=== PATIENT | male | born 1960 | race Caucasian/White ===

== ENCOUNTER → 2018-09-08 | Outpatient (CLI) | payer MEDICARE | END | disposition home or self-care (01) | LOC: SHCH 09:10 | PROVIDERS: ATTEND Internal Medicine Cardiovascular Disease | DX: I73.9 Peripheral vascular disease, unspecified (principal); I87.2 Venous insufficiency (chronic) (peripheral) | CPT/HCPCS: 93925; 93970 ==

== ENCOUNTER → 2018-09-18 | Outpatient (CLI) | payer MEDICARE | END | disposition home or self-care (01) | LOC: SHCH 09:58 → EDUNIT# 10:00 | PROVIDERS: ATTEND Internal Medicine Cardiovascular Disease | DX: I08.3 Combined rheumatic disorders of mitral, aortic and tricuspid valves (principal); I27.20 Pulmonary hypertension, unspecified | CPT/HCPCS: 93306 ==

== ENCOUNTER 2018-12-21 15:52 | Emergency (ER) | payer MEDICARE ==
[~2018-12-21 15:52] MED LIST: CEFA1I IVP; FLUC100T8 PO; HYDR-4064 PO; LORA0.5T2 PO; METH40VI31 IVP; METO2.5T2 PO; METO25TA6 PO; MIRT7.5T11 PO; MULT-1296 PO; MUPI22OI2 TP; SPIR50TA5 PO; WARF3TAB29 PO
== END 2018-12-21 17:00 | disposition home or self-care (01) ==
LOC: EDH 15:52
DX: S81.802A Unspecified open wound, left lower leg, initial encounter (principal); S81.801A Unspecified open wound, right lower leg, initial encounter; I89.0 Lymphedema, not elsewhere classified; I11.0 Hypertensive heart disease with heart failure; I50.9 Heart failure, unspecified; I48.91 Unspecified atrial fibrillation; Z88.1 Allergy status to other antibiotic agents; X58.XXXA Exposure to other specified factors, initial encounter; Y93.89 Activity, other specified; Y92.89 Other specified places as the place of occurrence of the external cause; Y99.8 Other external cause status

== ENCOUNTER → 2018-12-22 | Outpatient (CLI) | payer MEDICARE ==
[2018-12-22 13:02] VITALS: BP 104/76
== END | disposition home or self-care (01) ==
LOC: WHH 08:45
PROVIDERS: ATTEND Family Medicine
DX: S91.002A Unspecified open wound, left ankle, initial encounter (principal); S91.001A Unspecified open wound, right ankle, initial encounter; I87.323 Chronic venous hypertension (idiopathic) with inflammation of bilateral lower extremity; I11.0 Hypertensive heart disease with heart failure; I50.9 Heart failure, unspecified; I89.0 Lymphedema, not elsewhere classified; I48.20 Chronic atrial fibrillation, unspecified; I87.2 Venous insufficiency (chronic) (peripheral); E66.01 Morbid (severe) obesity due to excess calories; J44.9 Chronic obstructive pulmonary disease, unspecified; G47.33 Obstructive sleep apnea (adult) (pediatric); F41.9 Anxiety disorder, unspecified; Z88.1 Allergy status to other antibiotic agents; Z95.0 Presence of cardiac pacemaker; X58.XXXA Exposure to other specified factors, initial encounter; Y93.89 Activity, other specified; Y92.89 Other specified places as the place of occurrence of the external cause; Y99.8 Other external cause status
CPT/HCPCS: 87070 ×2; A4450; A6197; A6452; G0463

== ENCOUNTER → 2018-12-28 | Outpatient (CLI) | payer MEDICARE ==
[2018-12-28 10:51] VITALS: BP 126/86
== END | disposition home or self-care (01) ==
LOC: WHH 08:00
PROVIDERS: ATTEND Family Medicine
DX: I83.013 Varicose veins of right lower extremity with ulcer of ankle (principal); L97.311 Non-pressure chronic ulcer of right ankle limited to breakdown of skin; I83.023 Varicose veins of left lower extremity with ulcer of ankle; L97.321 Non-pressure chronic ulcer of left ankle limited to breakdown of skin; I48.91 Unspecified atrial fibrillation; I11.0 Hypertensive heart disease with heart failure; I50.9 Heart failure, unspecified; I89.0 Lymphedema, not elsewhere classified; E66.01 Morbid (severe) obesity due to excess calories; J44.9 Chronic obstructive pulmonary disease, unspecified; G47.30 Sleep apnea, unspecified; F41.9 Anxiety disorder, unspecified; Z95.0 Presence of cardiac pacemaker; Z88.1 Allergy status to other antibiotic agents
CPT/HCPCS: 29580; A6197; A6450; A6456; G0463

== ENCOUNTER → 2019-01-04 | Outpatient (CLI) | payer MEDICARE ==
[2019-01-04 11:50] VITALS: BP 114/68
== END | disposition home or self-care (01) ==
LOC: WHH 08:00
PROVIDERS: ATTEND Family Medicine
DX: S91.002D Unspecified open wound, left ankle, subsequent encounter (principal); S91.001D Unspecified open wound, right ankle, subsequent encounter; I87.323 Chronic venous hypertension (idiopathic) with inflammation of bilateral lower extremity; I11.0 Hypertensive heart disease with heart failure; I50.9 Heart failure, unspecified; I89.0 Lymphedema, not elsewhere classified; I48.20 Chronic atrial fibrillation, unspecified; I87.2 Venous insufficiency (chronic) (peripheral); E66.01 Morbid (severe) obesity due to excess calories; J44.9 Chronic obstructive pulmonary disease, unspecified; G47.33 Obstructive sleep apnea (adult) (pediatric); F41.9 Anxiety disorder, unspecified; Z88.1 Allergy status to other antibiotic agents; Z95.0 Presence of cardiac pacemaker; X58.XXXD Exposure to other specified factors, subsequent encounter
CPT/HCPCS: A6196; G0463

== ENCOUNTER → 2019-01-11 | Outpatient (CLI) | payer MEDICARE ==
[2019-01-11 10:47] VITALS: BP 118/88
== END | disposition home or self-care (01) ==
LOC: WHH 08:00
PROVIDERS: ATTEND Family Medicine
DX: I83.023 Varicose veins of left lower extremity with ulcer of ankle (principal); L97.321 Non-pressure chronic ulcer of left ankle limited to breakdown of skin; I83.013 Varicose veins of right lower extremity with ulcer of ankle; L97.311 Non-pressure chronic ulcer of right ankle limited to breakdown of skin; I11.0 Hypertensive heart disease with heart failure; I50.9 Heart failure, unspecified; I89.0 Lymphedema, not elsewhere classified; I48.20 Chronic atrial fibrillation, unspecified; I87.2 Venous insufficiency (chronic) (peripheral); E66.01 Morbid (severe) obesity due to excess calories; J44.9 Chronic obstructive pulmonary disease, unspecified; G47.33 Obstructive sleep apnea (adult) (pediatric); F41.9 Anxiety disorder, unspecified; Z88.1 Allergy status to other antibiotic agents; Z95.0 Presence of cardiac pacemaker
CPT/HCPCS: A6250; G0463

== ENCOUNTER → 2019-01-18 | Outpatient (CLI) | payer MEDICARE | END | disposition home or self-care (01) | LOC: SHCH 08:42 | PROVIDERS: ATTEND Internal Medicine Cardiovascular Disease | DX: I82.812 Embolism and thrombosis of superficial veins of left lower extremity (principal) | CPT/HCPCS: 93971 ==

== ENCOUNTER → 2019-01-18 | Outpatient (CLI) | payer MEDICARE ==
[2019-01-18 14:06] VITALS: BP 112/83
== END | disposition home or self-care (01) ==
LOC: WHH 13:00
PROVIDERS: ATTEND Family Medicine
DX: I83.023 Varicose veins of left lower extremity with ulcer of ankle (principal); L97.328 Non-pressure chronic ulcer of left ankle with other specified severity; I11.0 Hypertensive heart disease with heart failure; I50.9 Heart failure, unspecified; I89.0 Lymphedema, not elsewhere classified; I48.20 Chronic atrial fibrillation, unspecified; I87.2 Venous insufficiency (chronic) (peripheral); E66.01 Morbid (severe) obesity due to excess calories; G47.33 Obstructive sleep apnea (adult) (pediatric); F41.9 Anxiety disorder, unspecified; Z88.1 Allergy status to other antibiotic agents; Z95.0 Presence of cardiac pacemaker
CPT/HCPCS: G0463

== ENCOUNTER → 2019-01-24 | Outpatient (CLI) | payer MEDICARE | END | disposition home or self-care (01) | LOC: SHCH 09:16 | PROVIDERS: ATTEND Internal Medicine Cardiovascular Disease | DX: I51.7 Cardiomegaly (principal); I87.2 Venous insufficiency (chronic) (peripheral); I42.0 Dilated cardiomyopathy | CPT/HCPCS: 93306 ==

== ENCOUNTER → 2019-02-08 | Outpatient (CLI) | payer MEDICARE | END | disposition home or self-care (01) | LOC: SHCH 09:14 | PROVIDERS: ATTEND Internal Medicine Cardiovascular Disease | DX: I82.4Y1 Acute embolism and thrombosis of unspecified deep veins of right proximal lower extremity (principal) | CPT/HCPCS: 93971 ==

== ENCOUNTER → 2019-06-29 | Outpatient (CLI) | payer MEDICARE ==
[~2019-06-29] MED LIST changes: +REGADENOSON 0.4 MG/5 ML PF SYG IVP SCH
== END | disposition home or self-care (01) ==
LOC: SHCH 08:10
PROVIDERS: ATTEND Internal Medicine Cardiovascular Disease
DX: R94.31 Abnormal electrocardiogram [ECG] [EKG] (principal)
CPT/HCPCS: 78452; 93017; 96374; A9500 ×2; J2785

== ENCOUNTER 2019-08-03 05:18 | Day surgery (SDC) | payer MEDICARE ==
[2019-07-30 10:47] VITALS: BP 134/78
[2019-07-30 13:38] LABS: BASOPHILS % (AUTO) 0.5 % (0.0-5.0); EOSINOPHILS % (AUTO) 2.4 % (0.0-8.0); HEMATOCRIT 42.2 % (42-54); LYMPHOCYTES % (AUTO) 20.3 % (21.0-51.0); MEAN CORPUSCULAR HEMOGLOBIN 32.2 pg (27.0-33.0); MEAN CORPUSCULAR HGB CONC 34.4 g/dL (32.0-36.0); MEAN CORPUSCULAR VOLUME 93.6 fL (79-99); MONOCYTES % (AUTO) 9.9 % (3.0-13.0); NEUTROPHILS % (AUTO) 66.6 % (40.0-77.0); PLATELET COUNT (AUTO) 181 K/uL (130-400); RED BLOOD CELL COUNT(AUTO) 4.51 MIL/uL (4.50-6.20); RED CELL DISTRIBUTION WIDTH 12.3 % (11.0-15.5); WHITE BLOOD COUNT (AUTO) 8.8 K/uL (4.8-10.8)
[2019-07-30 13:40] LABS: APPEARANCE,URINE Clear (CLEAR); BILIRUBIN,URINE Negative (NEGATIVE); COLOR,URINE Yellow (YELLOW); GLUCOSE, URINE (UA) Negative (NEGATIVE); KETONES,URINE Negative (NEGATIVE); LEUKOCYTE ESTERASE ,URINE Negative (NEGATIVE); NITRATE,URINE Negative (NEGATIVE); OCCULT BLOOD,URINE Negative (NEGATIVE); PH,URINE 6.5 (5.0-8.0); PROTEIN,URINE Negative (NEGATIVE); UROBILINOGEN,URINE 0.2 mg/dL (0.2-1.0)
[2019-07-30 13:55] LABS: CREATININE 1.1 mg/dL (0.5-1.5); POTASSIUM 4.5 mmol/L (3.5-5.1)
[2019-07-30 13:58] LABS: INR 1.59 (0.85-1.15); PROTHROMBIN TIME 16.9 SEC (9.6-11.6)
--- NOTE | 2019-08-02 10:59 | NUR ---
anamaria MCCONNELL NOTIFIED THAT PT TOOK WARFARIN THIS AM. ALSO REPORTED PT/ INR LEVELS. NO FURTHER ORDERS GIVEN. OK TO PROCEED WITH PROCEDURE. PT INSTRUCTED TO HOLD WARFARIN IMMEDIATELY
[~2019-08-03] VITALS: Ht 175.3 cm; Wt 166.9 kg
[2019-08-03] VITALS (9 sets, daily range): BP systolic 82–103; BP diastolic 33–68
[~2019-08-03 05:18] MED LIST changes: +ALPR0.5T8 PO; +ASCO-360 PO; +ASPI-556 PO; +BUPR-47 PO; -CEFA1I IVP; +FE F1CAP8 PO; +FISH1CAP27 PO; -FLUC100T8 PO; +FURO20TA4 PO; -LORA0.5T2 PO; +LOSA25TA41 PO; -METH40VI31 IVP; -METO2.5T2 PO; -METO25TA6 PO; +METO50TA18 PO; -MIRT7.5T11 PO; -MULT-1296 PO; +MULT-1367 PO; -MUPI22OI2 TP; +QUET200T29 PO; -REGADENOSON 0.4 MG/5 ML PF SYG IVP SCH; +SPIR25TA6 PO; -SPIR50TA5 PO
[2019-08-03] MEDS ORDERED: SODIUM CHLORIDE 0.9% 1000ML 1,000 ML IV ONE (06:06)
[2019-08-03] MEDS ORDERED: SODIUM BICARB 50MEQ 50ML VIAL ONE (07:18)
[2019-08-03] MEDS ORDERED: IOHEXOL 350 MG/ML 100ML INFUS..BTL IV ONE (07:19)
[2019-08-03] MEDS ORDERED: HEPARIN SODIUM 1000UNIT/ML 10ML VIAL ONE (07:19)
[2019-08-03] MEDS ORDERED: MEPERIDINE-PF 25 MG/ML SYG ONE ×2 (07:19→08:25)
[2019-08-03] MEDS ORDERED: NITROGLYCERIN 2 MG/VIAL VIAL IV ONE (07:19)
[2019-08-03] MEDS ORDERED: IOHEXOL-350 50ML VIAL IV ONE (07:19)
[2019-08-03] MEDS ORDERED: MIDAZOLAM HCL 1 MG/ML 2ML VIAL ONE (07:20)
[2019-08-03] MEDS ORDERED: LIDOCAINE HCL 2% 20ML ONE (07:20)
[2019-08-03] MEDS ORDERED: NICARDIPINE HCL 25 MG/10 ML ML IV ONE (07:23)
[2019-08-03] MEDS ORDERED: SODIUM CHLORIDE 0.9% 1000ML 1,000 ML IV SCH (08:51)
[2019-08-03] MEDS ORDERED: ACETAMINOPHEN-CODEINE 300/30MG TAB PO PRN (09:00)
== END 2019-08-03 13:02 | disposition home or self-care (01) ==
LOC: DAH 05:18
PROVIDERS: ATTEND Internal Medicine Cardiovascular Disease
DX: I25.10 Atherosclerotic heart disease of native coronary artery without angina pectoris (principal); I48.91 Unspecified atrial fibrillation; G47.33 Obstructive sleep apnea (adult) (pediatric); Z99.89 Dependence on other enabling machines and devices; Z88.0 Allergy status to penicillin; Z79.899 Other long term (current) drug therapy
CPT/HCPCS: 36415; 71045; 80048; 81003; 85025; 85610; 85730; 93005; 93458; A4215; A4221; A4222; A4223; A4606; A4663; C1769; C1894; J1644 ×2; J2175 ×2; J2250; J3490 ×4; J7030; Q9965; Q9967 ×2; 99156; 99157

== ENCOUNTER → 2020-01-26 | Outpatient (CLI) | payer MEDICARE | END | disposition home or self-care (01) | LOC: SHCH 13:41 | PROVIDERS: ATTEND Internal Medicine Cardiovascular Disease | DX: I87.2 Venous insufficiency (chronic) (peripheral) (principal) | CPT/HCPCS: 93970 ==

== ENCOUNTER → 2020-02-21 | Outpatient (CLI) | payer MEDICARE | END | disposition home or self-care (01) | LOC: SHCH 15:09 | PROVIDERS: ATTEND Internal Medicine Cardiovascular Disease | DX: Z09 Encounter for follow-up examination after completed treatment for conditions other than malignant neoplasm (principal); I87.2 Venous insufficiency (chronic) (peripheral) | CPT/HCPCS: 93971 ==

== ENCOUNTER → 2020-03-27 | Outpatient (CLI) | payer MEDICARE ==
[~2020-03-27] MED LIST changes: -BUPR-47 PO; +BUPR-48 PO
== END | disposition home or self-care (01) ==
LOC: SHCH 07:46
PROVIDERS: ATTEND Internal Medicine Cardiovascular Disease
DX: Z09 Encounter for follow-up examination after completed treatment for conditions other than malignant neoplasm (principal); I87.2 Venous insufficiency (chronic) (peripheral)
CPT/HCPCS: 93971

== ENCOUNTER → 2020-04-03 | Outpatient (CLI) | payer MEDICARE | END | disposition home or self-care (01) | LOC: SHCH 08:02 | PROVIDERS: ATTEND Internal Medicine Cardiovascular Disease | DX: Z09 Encounter for follow-up examination after completed treatment for conditions other than malignant neoplasm (principal); I87.2 Venous insufficiency (chronic) (peripheral) | CPT/HCPCS: 93971 ==

== ENCOUNTER 2020-11-28 01:32 | Observation (INO) | payer MEDICARE ==
[2020-11-28] VITALS (10 sets, daily range): BP systolic 89–115; BP diastolic 44–66
[~2020-11-28] VITALS: Ht 177.8 cm; Wt 167.5 kg
[~2020-11-28 01:32] MED LIST changes: -BUPR-48 PO; +BUPR-49 PO; -QUET200T29 PO; +QUET200T30 PO
[2020-11-28] MEDS ORDERED: FAMOTIDINE 20MG VIAL IV ONE (02:00)
[2020-11-28] MEDS ORDERED: DiphenhydrAMINE HCL 50 MG/ML VIAL IV ONE (02:00)
[2020-11-28] MEDS ORDERED: SOLU-MEDROL 125MG VIAL IVP ONE (02:00)
[2020-11-28] MEDS ORDERED: 0.9%NACL 1000ML 1,000 ML IV ONE (02:00)
[2020-11-28 02:45] LABS: BASOPHILS % (AUTO) 0.2 % (0.0-5.0); EOSINOPHILS % (AUTO) 0.3 % (0.0-8.0); HEMATOCRIT 43.8 % (42-54); LYMPHOCYTES % (AUTO) 5.9 % (21.0-51.0); MEAN CORPUSCULAR HEMOGLOBIN 32.9 pg (27.0-33.0); MEAN CORPUSCULAR HGB CONC 34.7 g/dL (32.0-36.0); MEAN CORPUSCULAR VOLUME 94.8 fL (79-99); MONOCYTES % (AUTO) 7.3 % (3.0-13.0); NEUTROPHILS % (AUTO) 85.8 % (40.0-77.0); PLATELET COUNT (AUTO) 175 K/uL (130-400); RED BLOOD CELL COUNT(AUTO) 4.62 MIL/uL (4.50-6.20); RED CELL DISTRIBUTION WIDTH 12.9 % (11.0-15.5); WHITE BLOOD COUNT (AUTO) 19.5 K/uL (4.8-10.8)
[2020-11-28 02:57] LABS: CREATININE 1.7 mg/dL (0.5-1.5); POTASSIUM 3.7 mmol/L (3.5-5.1)
[2020-11-28 03:02] LABS: ALBUMIN 3.5 g/dL (3.5-5.0); BILIRUBIN,TOTAL 0.6 mg/dL (0.2-1.0); TOTAL PROTEIN, SERUM 7.4 g/dL (6.0-8.3)
[2020-11-28] MEDS ORDERED: NITROGLYCERIN 0.4 MG SL TAB SL PRN (05:00)
[2020-11-28] MEDS ORDERED: ACETAMINOPHEN 325 MG TAB PO PRN ×2 (05:00)
[2020-11-28] MEDS ORDERED: DiphenhydrAMINE HCL 50 MG/ML VIAL IV PRN (05:00)
[2020-11-28] MEDS ORDERED: ONDANSETRON 4MG INJ IV PRN (05:00)
[2020-11-28 05:44] LABS: HEMOGLOBIN A1C 5.6 % (4.0-6.0)
[2020-11-28] MEDS: 0.9%NACL 1000ML 1,000 ML IV SCH ×2 (06:48→15:00)
[2020-11-28 07:08] LABS: ABG BASE EXCESS -0.4 mmol/L (-2.0-3.0); ABG HCO3 24.9 mmol/L (21.0-28.0); ABG OXYGEN SATURATION 94.9 % (95.0-99.0); ABG PCO2 43 mmHg (35-48)
[2020-11-28] MEDS: FAMOTIDINE 20MG TAB PO SCH ×2 (07:50→20:20)
[2020-11-28 08:44] LABS: BASOPHILS % (AUTO) 0.2 % (0.0-5.0); EOSINOPHILS % (AUTO) 0.1 % (0.0-8.0); HEMATOCRIT 42.7 % (42-54); LYMPHOCYTES % (AUTO) 2.8 % (21.0-51.0); MEAN CORPUSCULAR HEMOGLOBIN 31.8 pg (27.0-33.0); MEAN CORPUSCULAR HGB CONC 34.2 g/dL (32.0-36.0); MONOCYTES % (AUTO) 1.1 % (3.0-13.0); NEUTROPHILS % (AUTO) 95.2 % (40.0-77.0); PLATELET COUNT (AUTO) 171 K/uL (130-400); RED BLOOD CELL COUNT(AUTO) 4.59 MIL/uL (4.50-6.20); RED CELL DISTRIBUTION WIDTH 12.7 % (11.0-15.5); WHITE BLOOD COUNT (AUTO) 18.3 K/uL (4.8-10.8)
[2020-11-28 08:59] LABS: CREATININE 1.5 mg/dL (0.5-1.5); POTASSIUM 4.2 mmol/L (3.5-5.1)
[2020-11-28 09:03] LABS: ALBUMIN 3.7 g/dL (3.5-5.0); BILIRUBIN,TOTAL 0.5 mg/dL (0.2-1.0); CRP QUANTITATIVE 24.4 mg/L (0.00-9.0); MAGNESIUM 1.8 mg/dL (1.80-2.40); TOTAL PROTEIN, SERUM 7.8 g/dL (6.0-8.3)
[2020-11-28 09:04] LABS: INR 1.15 (0.85-1.15); PROTHROMBIN TIME 12.4 SEC (9.6-11.6)
[2020-11-28 09:05] LABS: PARTIAL THROMBOPLASTIN TIME 26.8 SEC (26.3-35.5)
[2020-11-28 11:43] LABS: APPEARANCE,URINE Clear (CLEAR); BILIRUBIN,URINE Negative (NEGATIVE); COLOR,URINE Yellow (YELLOW); GLUCOSE, URINE (UA) Negative (NEGATIVE); KETONES,URINE Trace mg/dL (NEGATIVE); LEUKOCYTE ESTERASE ,URINE Trace (NEGATIVE); NITRATE,URINE Negative (NEGATIVE); OCCULT BLOOD,URINE Negative (NEGATIVE); PH,URINE 5.5 (5.0-8.0); PROTEIN,URINE Negative (NEGATIVE)
[2020-11-28 11:53] LABS: BACTERIA,URINE None Seen /HPF (None Seen); HYALINE CASTS, URINE 0-1 /LPF (0-1 /LPF); RBC,URINE 0-1 /HPF (0-1); SQUAMOUS EPITHELIAL CELL,UR 0-2 /HPF (0-2); WBC,URINE 0-1 /HPF (0-1)
[2020-11-28 11:58] LABS: AMPHET/METH SCREEN,URINE NEGATIVE (NEGATIVE); BARBITURATE SCREEN, URINE NEGATIVE (NEGATIVE); BENZODIAZEPINES SCREEN,URINE POSITIVE (NEGATIVE); CANNABINOID SCREEN,URINE NEGATIVE (NEGATIVE); COCAINE SCREEN,URINE NEGATIVE (NEGATIVE); OPIATE SCREEN,URINE POSITIVE (NEGATIVE); PHENCYCLIDINE SCREEN,URINE NEGATIVE (NEGATIVE)
[2020-11-28] MEDS ORDERED: AEC81 PO (13:52)
[2020-11-28] MEDS ORDERED: BUPR150T8 PO (13:58)
[2020-11-28] MEDS ORDERED: LORA0.5T83 PO ×2 (13:58→14:14)
[2020-11-28] MEDS ORDERED: LOSA25TA41 PO (14:04)
[2020-11-28] MEDS ORDERED: APIX5TAB PO (14:04)
[2020-11-28] MEDS ORDERED: NYST1POW9 MC (14:14)
[2020-11-28] MEDS ORDERED: MULT-1192 PO (14:14)
[2020-11-28] MEDS ORDERED: LEVOFLOXACIN 500 MG/D5W 100 ML 100 ML IV SCH (14:30)
[2020-11-28] MEDS ORDERED: APIXABAN 2.5 MG TABLET PO ONE (20:12)
[2020-11-28] MEDS: LORAZEPAM 0.5 MG TABLET PO SCH (20:20)
[2020-11-28] MEDS: APIXABAN 5 MG TABLET PO SCH (20:20)
[2020-11-28] MEDS: METOPROLOL TARTRATE 50 MG TAB PO SCH (20:20)
[2020-11-28] MEDS ORDERED: QUETIAPINE FUMARATE 100 MG TAB PO SCH (21:00)
[2020-11-28] MEDS ORDERED: CEFTRIAXONE 1G VIAL IVP SCH (21:00)
[2020-11-29 00:31] LABS: ABG HCO3 24.1 mmol/L (21.0-28.0); ABG OXYGEN SATURATION 97.7 % (95.0-99.0); ABG PCO2 46 mmHg (35-48)
[2020-11-29] MEDS: 0.9%NACL 1000ML 1,000 ML IV SCH (00:55)
[2020-11-29 04:00] VITALS: BP 90/56
[2020-11-29 04:19] LABS: BASOPHILS % (AUTO) 0.2 % (0.0-5.0); EOSINOPHILS % (AUTO) 0.1 % (0.0-8.0); HEMATOCRIT 38.1 % (42-54); LYMPHOCYTES % (AUTO) 5.1 % (21.0-51.0); MEAN CORPUSCULAR HEMOGLOBIN 32.5 pg (27.0-33.0); MEAN CORPUSCULAR HGB CONC 34.6 g/dL (32.0-36.0); MEAN CORPUSCULAR VOLUME 93.8 fL (79-99); MONOCYTES % (AUTO) 5.6 % (3.0-13.0); NEUTROPHILS % (AUTO) 88.5 % (40.0-77.0); PLATELET COUNT (AUTO) 158 K/uL (130-400); RED BLOOD CELL COUNT(AUTO) 4.06 MIL/uL (4.50-6.20); RED CELL DISTRIBUTION WIDTH 12.7 % (11.0-15.5); WHITE BLOOD COUNT (AUTO) 17.8 K/uL (4.8-10.8)
[2020-11-29 04:50] LABS: ALBUMIN 3.3 g/dL (3.5-5.0); BILIRUBIN,TOTAL 0.4 mg/dL (0.2-1.0); CREATININE 1.2 mg/dL (0.5-1.5); POTASSIUM 3.7 mmol/L (3.5-5.1)
[2020-11-29 08:00] VITALS: BP 124/82
[2020-11-29] MEDS ORDERED: ASCORBIC ACID 500 MG TAB PO SCH (09:00)
[2020-11-29] MEDS ORDERED: SPIRONOLACTONE 25 MG TAB PO SCH (09:00)
[2020-11-29] MEDS ORDERED: ASPIRIN 81 MG EC TAB PO SCH (09:00)
[2020-11-29] MEDS ORDERED: MULTIVITAMIN TABLET PO SCH (09:00)
[2020-11-29] MEDS ORDERED: FUROSEMIDE 20 MG TABLET PO SCH (09:00)
[2020-11-29] MEDS: LORAZEPAM 0.5 MG TABLET PO SCH (09:47)
[2020-11-29] MEDS: APIXABAN 5 MG TABLET PO SCH (09:47)
[2020-11-29] MEDS: METOPROLOL TARTRATE 50 MG TAB PO SCH (09:47)
[2020-11-29] MEDS: FAMOTIDINE 20MG TAB PO SCH (09:47)
[2020-11-29] MEDS ORDERED: EPIN0.3P3 IJ (10:04)
[2020-11-29 11:52] VITALS: BP 110/74
== END 2020-11-29 12:36 | disposition home or self-care (01) ==
LOC: EDH 01:32 → EDHIP 04:46 → 4BH 22:55
PROVIDERS: ADMIT Internal Medicine; ATTEND Internal Medicine
DX: T78.2XXA Anaphylactic shock, unspecified, initial encounter (principal); Z20.822 Contact with and (suspected) exposure to COVID-19; D72.829 Elevated white blood cell count, unspecified; I95.9 Hypotension, unspecified; I13.0 Hypertensive heart and chronic kidney disease with heart failure and stage 1 through stage 4 chronic kidney disease, or unspecified chronic kidney disease; I50.22 Chronic systolic (congestive) heart failure; N18.9 Chronic kidney disease, unspecified; N17.9 Acute kidney failure, unspecified; E66.01 Morbid (severe) obesity due to excess calories; E78.1 Pure hyperglyceridemia; I48.91 Unspecified atrial fibrillation; G56.00 Carpal tunnel syndrome, unspecified upper limb; G47.33 Obstructive sleep apnea (adult) (pediatric); M19.90 Unspecified osteoarthritis, unspecified site; Z68.43 Body mass index [BMI] 50.0-59.9, adult; Z79.01 Long term (current) use of anticoagulants; Z88.0 Allergy status to penicillin; Z79.82 Long term (current) use of aspirin; Z79.899 Other long term (current) drug therapy; Z98.890 Other specified postprocedural states
CPT/HCPCS: 36415 ×2; 36600 ×2; 71045; 80053 ×3; 80305; 81001; 82803 ×2; 83036; 83605 ×2; 83735; 83880; 84145; 84484; 85025 ×3; 85378 ×2; 85610; 85730; 86140; 87040 ×2; 87088; 87635; 93005; 93970; 94660; 96361; 96365; 96366; 96375; 96376; 99291; G0378 ×32; J1200 ×2; J1956; J2930; J3490; J7030

== ENCOUNTER → 2021-09-04 | Outpatient (CLI) | payer MEDICARE ==
[~2021-09-04] MED LIST changes: +AEC81 PO; -ALPR0.5T8 PO; +APIX5TAB PO; +BUPR-113 PO; +EPIN0.3P3 IJ; -FE F1CAP8 PO; -HYDR-4064 PO; +LORA0.5T83 PO; +MULT-1192 PO; -MULT-1367 PO; +NYST1POW9 MC; -WARF3TAB29 PO
== END | disposition home or self-care (01) ==
LOC: SHCH 09:36
PROVIDERS: ATTEND Internal Medicine Cardiovascular Disease
DX: I34.8 Other nonrheumatic mitral valve disorders (principal); I51.7 Cardiomegaly; I25.10 Atherosclerotic heart disease of native coronary artery without angina pectoris; I87.2 Venous insufficiency (chronic) (peripheral); I48.20 Chronic atrial fibrillation, unspecified; F15.10 Other stimulant abuse, uncomplicated; R94.31 Abnormal electrocardiogram [ECG] [EKG]; E66.01 Morbid (severe) obesity due to excess calories; Z98.890 Other specified postprocedural states
CPT/HCPCS: 93306

== ENCOUNTER 2023-09-17 05:43 | Emergency (ER) | payer MEDICARE ==
[~2023-09-17] VITALS: Ht 177.8 cm; Wt 147.4 kg
[2023-09-17] MEDS ORDERED: HYDR-4064 PO (06:38)
[2023-09-17] MEDS ORDERED: FERR324T10 PO (06:38)
[2023-09-17 06:40] LABS: BASOPHILS # (AUTO) 0.05 K/uL (0.00-0.20); BASOPHILS % (AUTO) 0.3 % (0.0-5.0); EOSINOPHILS % (AUTO) 1.2 % (0.0-8.0); HEMATOCRIT 38.9 % (42-54); IMMATURE GRANULOCYTE ABSOLUTE 0.08 K/uL (0-1); LYMPHOCYTES # (AUTO) 0.9 K/uL (1.0-4.8); LYMPHOCYTES % (AUTO) 5.1 % (21.0-51.0); MEAN CORPUSCULAR HEMOGLOBIN 31.1 pg (27.0-33.0); MEAN CORPUSCULAR HGB CONC 34.7 g/dL (32.0-36.0); MEAN CORPUSCULAR VOLUME 89.6 fL (79-99); MONOCYTES % (AUTO) 6.1 % (3.0-13.0); NEUTROPHILS # (AUTO) 14.4 K/uL (1.8-7.7); NEUTROPHILS % (AUTO) 86.8 % (40.0-77.0); PLATELET COUNT (AUTO) 197 K/uL (130-400); RED BLOOD CELL COUNT(AUTO) 4.34 MIL/uL (4.50-6.20); WHITE BLOOD COUNT (AUTO) 16.6 K/uL (4.8-10.8)
[2023-09-17 07:00] VITALS: BP 116/72; PULSE 97; RESP 16; O2SAT 99
[2023-09-17 07:46] LABS: B-TYPE NATRIURETIC PEPTIDE 38 pg/mL (0-100)
[2023-09-17 08:35] LABS: ALBUMIN 3.5 g/dL (3.5-5.0); BILIRUBIN,TOTAL 0.8 mg/dL (0.2-1.0); CREATININE 1.2 mg/dL (0.5-1.3); POTASSIUM 3.3 mmol/L (3.5-5.1); TOTAL PROTEIN, SERUM 7.6 g/dL (6.0-8.3)
[2023-09-17] MEDS ORDERED: HYDR-4381 PO (08:50)
[2023-09-17] MEDS ORDERED: MELO-108 PO (08:50)
[2023-09-17] MEDS: KETOROLAC 15MG/ML VIAL (15MG/ML) IV ONE (09:09)
[2023-09-17] MEDS: HYDROCODONE/ACETAMINOPHEN 10/325 MG TAB PO ONE (09:09)
[2023-09-17] MEDS ORDERED: HYDR-4068 PO (12:09)
== END 2023-09-17 09:35 | disposition home or self-care (01) ==
LOC: EDH 05:43
DX: M00.872 Arthritis due to other bacteria, left ankle and foot (principal); M00.871 Arthritis due to other bacteria, right ankle and foot; B96.89 Other specified bacterial agents as the cause of diseases classified elsewhere; I11.0 Hypertensive heart disease with heart failure; M79.672 Pain in left foot; I50.9 Heart failure, unspecified; F32.A Depression, unspecified; F41.9 Anxiety disorder, unspecified; E66.9 Obesity, unspecified; R22.43 Localized swelling, mass and lump, lower limb, bilateral; Z88.1 Allergy status to other antibiotic agents; Z79.82 Long term (current) use of aspirin; Z79.899 Other long term (current) drug therapy; Z98.890 Other specified postprocedural states
CPT/HCPCS: 99285; 93970; 96374; 71045; 84484; 80053; 83880; 85025; 36415; 73610; 73630; J1885

== ENCOUNTER → 2024-03-26 | Outpatient (CLI) | payer MEDICARE ==
[~2024-03-26] MED LIST changes: +FERR324T10 PO; +HYDR-4064 PO; +HYDR-4068 PO; +MELO-108 PO
[2024-03-26 22:00] VITALS: PULSE 98; RESP 26
[2024-03-26 22:30] VITALS: PULSE 82; RESP 28
[2024-03-26 23:00] VITALS: PULSE 84; RESP 26
[2024-03-26 23:30] VITALS: PULSE 84; RESP 24
[2024-03-27] VITALS (10 sets, daily range): PULSE 78–86; RESP 22–30
--- NOTE | 2024-03-27 04:01 | NUR ---
FUROSEMIDE 20 MG,HYDROCODONE-ACETAMINOPHEN 7.5-325 MG,LORAZEPAM 0.5,LOSARTAN 25 MG, METOPROLOL TARTRATE 50 MG,MULTIVITAMIN,NYSTATIN 100,000 UNIT/GRAM,OMEGA-3 350 MG-235 MG,QUETIAPINE 200 MG,SPIRONOLACTONE 25 MG,ELIQUIS 5 MG Addendum: 03/27/24 at 3714 by BROOKLYN AUSTIN Amended: Links added.
== END | disposition home or self-care (01) ==
LOC: SLP 20:29
PROVIDERS: ATTEND Family Medicine
DX: G47.33 Obstructive sleep apnea (adult) (pediatric) (principal); I10 Essential (primary) hypertension
CPT/HCPCS: 95810

== ENCOUNTER → 2024-04-04 | Outpatient (CLI) | payer MEDICARE ==
[2024-04-04 22:25] VITALS: PULSE 82; RESP 18
[2024-04-04 23:00] VITALS: PULSE 78; RESP 20
[2024-04-04 23:30] VITALS: PULSE 82; RESP 22
[2024-04-05] VITALS (10 sets, daily range): PULSE 76–86; RESP 20–24
== END | disposition home or self-care (01) ==
LOC: SLP 20:25
PROVIDERS: ATTEND Family Medicine
DX: G47.33 Obstructive sleep apnea (adult) (pediatric) (principal); I10 Essential (primary) hypertension
CPT/HCPCS: 95811

== ENCOUNTER 2024-11-09 06:39 | Day surgery (SDC) | payer MEDICARE ==
[2024-11-05 11:45] LABS: IMMATURE GRANULOCYTE ABSOLUTE 0.03 K/uL (0-1); NUCLEATED RED BLOOD CELLS 0.0 % (0.0-0.19); PLATELET COUNT (AUTO) 179 K/uL (130-400); RED BLOOD CELL COUNT(AUTO) 4.18 MIL/uL (4.50-6.20); RED CELL DISTRIBUTION WIDTH 12.9 % (11.0-15.5); WHITE BLOOD COUNT (AUTO) 9.3 K/uL (4.8-10.8)
[2024-11-05 11:53] VITALS: BP 96/58; PULSE 94; RESP 16; TEMP 99.1
[2024-11-05 11:55] LABS: CREATININE 1.2 mg/dL (0.5-1.3); GLOMERULAR FILTR. RATE CALC 68.0 mL/min (>90); GLUCOSE,RANDOM 121.0 mg/dL (70-105); SODIUM SERUM 135.0 mmol/L (136-145); UREA NITROGEN, BLOOD 28.0 mg/dL (7-18)
[2024-11-05 11:56] LABS: INR 1.14 (0.85-1.15)
[~2024-11-09] VITALS: Ht 177.8 cm; Wt 143.7 kg
[~2024-11-09 06:39] MED LIST changes: +ALLO100T PO; -ASCO-360 PO; -ASPI-556 PO; -BUPR-113 PO; -BUPR-49 PO; +BUPR200T8 PO; +COLC0.6T79 PO; -EPIN0.3P3 IJ; -FERR324T10 PO; -FISH1CAP27 PO; +GABA-529 PO; -HYDR-4064 PO; -HYDR-4068 PO; -MELO-108 PO; +METO2.5T2 PO; -MULT-1192 PO; -NYST1POW9 MC; +SIMV5TAB58 PO; +TAMS-55 PO
[2024-11-09 06:42] VITALS: BP 129/71; PULSE 99; RESP 17; TEMP 98.2
[2024-11-09] MEDS: 0.9%NACL 1000ML 1,000 ML IV SCH (07:14)
[2024-11-09] MEDS ORDERED: LIDOCAINE HCL 400MG/20ML VIAL ONE (09:36)
[2024-11-09] MEDS ORDERED: IOHEXOL 350 MG/ML 100ML INFUS..BTL IV ONE (09:36)
[2024-11-09] MEDS ORDERED: HEParin-NS 1,000 UNIT/500 ML 1,000 ML IV ONE (09:37)
[2024-11-09] MEDS ORDERED: NITROGLYCERIN 50MG VIAL ONE (09:37)
[2024-11-09] MEDS ORDERED: IODIXANOL 320 MG/ML 100 ML VIAL ONE (09:41)
[2024-11-09] MEDS ORDERED: MIDAZOLAM HCL 1 MG/ML 2ML VIAL ONE ×2 (10:13→10:56)
--- NOTE | 2024-11-09 11:43 | PRN ---
Procedure Note INDICATION FOR PROCEDURE: [] Iliac vein compression PROCEDURE: [] Conscious sedation Right internal jugular sheath placement 9 Japanese ultrasound-guided Left common femoral venogram Intravascular ultrasound of bilateral common femoral veins common external iliac veins common iliac veins and IVC Angioplasty and stent placement to left common iliac external iliac and common femoral vein with the use of a 20 mm x 150 mm Medtronic venous self expanding stent Primary stent placement to right common femoral vein, right external iliac and common iliac vein with the use of a 16 mm x 150 mm Medtronic venous self expanding stent DATE OF PROCEDURE: November 09, 2024 ORDER DETAILER: Jose Alejandro Rodriguez MD, F.A.C.C. PROCEDURE NOTE: [] Patient was electively brought to catheterization suite and prepped and draped in sterile fashion. Right IJ was exposed for access and was done ultrasound- guided and a 9 Japanese sheath was then placed into the right internal jugular vein. Next the Glidewire was successfully placed into the the left common femoral vein followed by an Omni flush catheter which then a venogram was p erformed. Next glidewire was placed back into left common femoral vein and intravascular ultrasound interrogation was done of the left common femoral vein external iliac vein and common iliac vein as well as the IVC. Significant compression was noted as described below and it was felt stent placement was appropriate. Therefore a 20 mm x 150 mm Medtronic venous self expanding stent was then placed into the left common femoral vein and deployed. This was then followed by post stent dilatation with a an 18 mm balloon throughout the entirety of the stent. This was then removed and the glidewire was then redirected to the right common femoral vein followed by intravascular ultrasound interrogation of the right common femoral vein external iliac vein and common iliac vein. There was significant compression as noted below IVUS catheter was removed landmarks were made and then a 16 mm x 150 mm Medtronic venous self expanding stent was then placed into the right common femoral vein and deployed superiorly involving the right common iliac vein. Follow up intravascular ultrasound revealed excellent stent apposition. At end of case right IJ was pulled manual pressure was held and no complications occurred. FINDINGS: [] 59% compression left common iliac vein and 66% compression left external iliac vein 57.1% compression right common iliac vein and 60% compression right external iliac vein IMPRESSION: [] Successful stent placement to left common iliac external iliac and common femoral vein with the use of a 20 mm x 150 mm Medtronic venous self expanding stent Successful stent placement to right common iliac external iliac and common femoral vein with the use of a 16 mm x 150 mm Medtronic venous self expanding stent PLAN: [] Initiate clopidogrel 75 mg for 30 days Reinitiate Eliquis 5 mg twice daily JOSE ALEJANDRO Harrington MD Nov 09, 2024 11:43
[2024-11-09 12:00] VITALS: BP 105/74; PULSE 83; RESP 15; TEMP 97.5
[2024-11-09] MEDS ORDERED: GLUCAGON 1MG KIT 1 MG ML IM PRN (12:00)
[2024-11-09] MEDS ORDERED: DEXTROSE 50%-WATER 50 ML DISP.SYRIN IV PRN (12:00)
[2024-11-09 12:15] VITALS: BP 105/74; PULSE 83; RESP 15; TEMP 97.5
[2024-11-09 12:30] VITALS: BP 105/74; PULSE 83; RESP 15; TEMP 97.5
[2024-11-09 12:45] VITALS: BP 105/74; PULSE 83; RESP 15; TEMP 97.5
[2024-11-09 13:00] VITALS: BP 105/74; PULSE 83; RESP 15; TEMP 97.5
== END 2024-11-09 13:05 | disposition home or self-care (01) ==
LOC: DAH 06:39
PROVIDERS: ATTEND Internal Medicine Cardiovascular Disease
DX: I87.1 Compression of vein (principal); I87.2 Venous insufficiency (chronic) (peripheral); G47.33 Obstructive sleep apnea (adult) (pediatric); I48.91 Unspecified atrial fibrillation; E66.01 Morbid (severe) obesity due to excess calories; I48.20 Chronic atrial fibrillation, unspecified; I73.9 Peripheral vascular disease, unspecified; N18.6 End stage renal disease; Z88.0 Allergy status to penicillin; Z68.42 Body mass index [BMI] 45.0-49.9, adult; Z99.89 Dependence on other enabling machines and devices; Z79.01 Long term (current) use of anticoagulants; Z79.899 Other long term (current) drug therapy
CPT/HCPCS: 80048; 85025; 85610; 85730; 36415; 37238; 37239; 36012; 37252; 37253 ×5; 82948; 99156; 99157 ×3; C1876 ×2; C1769; C1894 ×4; C1725; C1753; J3010; J3490 ×2; J7030; J1644 ×2; J2250 ×2; Q9967; A4215; A4222; A4221; A4663; A4216; A4606; A4223 ×3